=== PATIENT | female | born 1950 | race Caucasian/White ===

== ENCOUNTER → 2017-09-23 | Outpatient (CLI) | payer MEDICARE, OTHER ==
[~2017-09-23] MED LIST: GADOBUTROL 10 MMOL/10 ML VIAL ONE
== END | disposition home or self-care (01) ==
LOC: CFH 10:15
DX: R07.81 Pleurodynia (principal); N64.89 Other specified disorders of breast
CPT/HCPCS: 71020; 82565; A9585; C8908